=== PATIENT | female | born 1960 | race Caucasian/White ===

== ENCOUNTER 2022-12-15 17:53 | Inpatient (IN) | payer BC ==
[~2022-12-15] VITALS: Ht 170.2 cm; Wt 72.6 kg
[2022-12-15] MEDS ORDERED: ONDANSETRON HCL 4MG/2ML INJ IV STA ×2 (18:07→19:49)
[2022-12-15] MEDS ORDERED: MORPHINE SULFATE 4 MG/ML CPJ (NOT FOR IM USE) IV STA ×2 (18:07→19:49)
[2022-12-15 18:26] LABS: BASOPHILS % 0.6 % (0.0-2.0); HEMATOCRIT. 36.7 % (36.0-48.0); LYMPHOCYTES % 30.1 % (20.0-50.0); MEAN CORPUSCULAR HEMOGLOBIN 27.8 pg (28.0-32.0); MEAN CORPUSCULAR HGB CONC 32.7 g/dL (31.0-37.0); MEAN CORPUSCULAR VOLUME 85.1 fL (81.0-99.0); MONOCYTES % 5.8 % (2.0-8.0); NEUTROPHILS % 61.5 % (40.0-76.0); PLATELET 316 x1000/uL (130-400); RED BLOOD CELL COUNT 4.32 mill/uL (4.2-5.4); RED CELL DISTRIBUTION WIDTH 13.8 % (11.6-14.6)
[2022-12-15 18:56] LABS: CHLORIDE 106 mEq/L (98-107); INDEX HEMOLYSI 1 (1-3); INDEX ICTERIC 1 (1-4); INDEX LIPEMIC 1 (1-3); POTASSIUM 3.6 mEq/L (3.5-5.1); SODIUM 139 mEq/L (136-145)
[2022-12-15 19:05] LABS: ALANINE AMINOTRANSFERASE 39 IU/L (13-61); ALBUMIN 3.8 g/dL (3.4-5.0); ASPARTATE AMINOTRANSFERASE 28 IU/L (15-37); BILIRUBIN TOTAL 0.2 mg/dL (0.1-1.0); CALCIUM 9.1 mg/dL (8.5-10.1); CARBON DIOXIDE 26 mEq/L (21-32); GLUCOSE 116 mg/dL (70-105); PROTEIN TOTAL 6.9 g/dL (6.0-8.3); UREA NITROGEN BLOOD 17 mg/dL (7-21)
[2022-12-15] MEDS ORDERED: SODIUM CHLORIDE 0.9% 1,000 ML IV ONE (20:00)
[2022-12-15 23:30] VITALS: BP 127/65; PULSE 74; RESP 18; TEMP 97.6
[2022-12-16] VITALS: BP 140/77; PULSE 77; RESP 16; TEMP 98.9
[2022-12-16] MEDS ORDERED: ONDANSETRON HCL 4MG/2ML INJ IV PRN (00:45)
[2022-12-16] MEDS ORDERED: MAGNESIUM HYDROXIDE 400MG/5ML 30ML UDC PO PRN (00:45)
[2022-12-16] MEDS ORDERED: ACETAMINOPHEN 325MG TABLET PO PRN ×2 (00:45)
[2022-12-16] MEDS ORDERED: MAGNESIUM/ALUMINUM HYDROXIDE/SIMETHICONE 30ML UDC PO PRN (00:45)
[2022-12-16] MEDS ORDERED: DIPHENHYDRAMINE 50MG/ML VIAL IV PRN (00:45)
[2022-12-16] MEDS ORDERED: CLONIDINE 0.1MG TABLET PO PRN (00:45)
[2022-12-16] MEDS ORDERED: ZOLPIDEM TARTRATE 5MG TABLET PO PRN (01:45)
[2022-12-16] MEDS: ZOLPIDEM TARTRATE 5MG TABLET PO PRN (02:52)
[2022-12-16] MEDS: HYDROCODONE/ACETAMINOPHEN 10/325MG TABLET PO PRN ×4 (02:52→20:20)
[2022-12-16 04:00] VITALS: BP 133/71; PULSE 79; RESP 18; TEMP 97.4
[2022-12-16] MEDS: SODIUM CHLORIDE 0.9% INJ 3ML FLUSH IVF SCH ×3 (06:20→22:00)
[2022-12-16] MEDS: OMEPRAZOLE 20MG CAPSULE EXTENDED RELEASE PO SCH (07:20)
[2022-12-16 07:42] LABS: INR 0.9
[2022-12-16 08:00] VITALS: BP 123/74; PULSE 74; RESP 20; TEMP 98.2
[2022-12-16] MEDS: POLYETHYLENE GLYCOL 3350 (17GM) 1 DOSE PACK PO SCH (09:00)
[2022-12-16] MEDS: ENOXAPARIN 40MG/0.4ML SYR SUBCUT SCH (09:00)
[2022-12-16] MEDS: DOCUSATE SODIUM 250MG CAPSULE PO SCH (09:00)
[2022-12-16 12:00] VITALS: BP 97/62; PULSE 78; RESP 20; TEMP 98.2
[2022-12-16] MEDS ORDERED: NALOXONE HCL 0.4MG/ML VIAL IV PRN (19:45)
[2022-12-16 20:00] VITALS: BP 133/87; PULSE 87; RESP 20; TEMP 98.6
[2022-12-17] VITALS: BP 97/88; PULSE 87; RESP 18; TEMP 97.9
[2022-12-17] MEDS: MORPHINE SULFATE 4 MG/ML CPJ (NOT FOR IM USE) IV PRN ×5 (01:05→21:45)
[2022-12-17 04:00] VITALS: BP 124/68; PULSE 85; RESP 20; TEMP 98.1
[2022-12-17] MEDS: SODIUM CHLORIDE 0.9% INJ 3ML FLUSH IVF SCH (06:00)
[2022-12-17 08:00] VITALS: BP 122/66; PULSE 77; RESP 20; TEMP 99.1
[2022-12-17] MEDS: POLYETHYLENE GLYCOL 3350 (17GM) 1 DOSE PACK PO SCH (09:00)
[2022-12-17] MEDS: DOCUSATE SODIUM 250MG CAPSULE PO SCH (09:00)
[2022-12-17] MEDS ORDERED: LIDOCAINE HCL 1%/EPI 1:200,000 30 ML VIAL ONE (11:48)
[2022-12-17] MEDS ORDERED: POLYMYXIN B SULFATE 500000 UNITS/VIAL ONE (11:48)
[2022-12-17] MEDS ORDERED: VANCOMYCIN HCL 1 GM/VIAL ONE (11:48)
[2022-12-17 12:00] VITALS: BP 121/70; PULSE 77; RESP 19; TEMP 96.8
[2022-12-17] MEDS ORDERED: SUCCINYLCHOLINE CHLORIDE 200MG/10ML IV ONE (12:51)
[2022-12-17] MEDS ORDERED: ROCURONIUM BROMIDE 10MG/ML VIAL 5ML IV ONE (12:51)
[2022-12-17] MEDS ORDERED: FENTANYL CITRATE/PF 50MCG/ML 2ML VIAL ONE (12:52)
[2022-12-17] MEDS ORDERED: PROPOFOL 200MG/20ML VIAL IV ONE (12:52)
[2022-12-17] MEDS ORDERED: MIDAZOLAM HCL 2 MG/2 ML VIAL ONE (12:52)
[2022-12-17] MEDS ORDERED: PHENYLEPHRINE HCL 10 MG/ML 1ML (IV VIAL) IV ONE (13:15)
[2022-12-17] MEDS ORDERED: GLYCOPYRROLATE 0.2 MG/ML 2ML VIAL ONE (13:32)
[2022-12-17] MEDS ORDERED: NEOSTIGMINE METHYLSULFATE 1MG/ML 10 ML VIAL ONE (13:32)
[2022-12-17] MEDS ORDERED: HYDROMORPHONE HCL/PF 2MG/ML CPJ IV PRN (14:00)
[2022-12-17] MEDS: CEFAZOLIN 2,000 MG in DEXT 5% WATER 100 ML IV SCH ×2 (14:00→22:00)
[2022-12-17] MEDS ORDERED: METHOCARBAMOL 750MG TABLET PO PRN (16:45)
[2022-12-17 20:00] VITALS: BP 118/68; PULSE 85; RESP 18; TEMP 98.2
[2022-12-17] MEDS: ZOLPIDEM TARTRATE 5MG TABLET PO PRN (21:44)
[2022-12-18] VITALS: BP_SYST 115; BP_SYST 90; BP_DIAS 54; BP_DIAS 69; PULSE 86; PULSE 95; RESP 20; TEMP 97.7; TEMP 98.8
[2022-12-18] MEDS: MORPHINE SULFATE 4 MG/ML CPJ (NOT FOR IM USE) IV PRN ×4 (01:37→17:06)
[2022-12-18 04:00] VITALS: BP 103/67; PULSE 77; RESP 18; TEMP 99.7
[2022-12-18] MEDS: HYDROCODONE/ACETAMINOPHEN 10/325MG TABLET PO PRN ×2 (04:08→20:24)
[2022-12-18] MEDS: CEFAZOLIN 2,000 MG in DEXT 5% WATER 100 ML IV SCH ×3 (05:32→21:17)
[2022-12-18 08:00] VITALS: BP 104/59; PULSE 80; RESP 20; TEMP 97.7
[2022-12-18] MEDS: OMEPRAZOLE 20MG CAPSULE EXTENDED RELEASE PO SCH (08:30)
[2022-12-18] MEDS: DOCUSATE SODIUM 250MG CAPSULE PO SCH ×2 (08:30→15:06)
[2022-12-18] MEDS: POLYETHYLENE GLYCOL 3350 (17GM) 1 DOSE PACK PO SCH (08:34)
[2022-12-18] MEDS: ENOXAPARIN 40MG/0.4ML SYR SUBCUT SCH (08:46)
[2022-12-18 12:00] VITALS: BP 116/68; PULSE 95; RESP 20; TEMP 96.4
[2022-12-18] MEDS: SODIUM CHLORIDE 0.9% INJ 3ML FLUSH IVF SCH ×2 (14:00→22:00)
[2022-12-18] MEDS: CARISOPRODOL 350 MG TABLET PO PRN ×2 (14:42→20:24)
[2022-12-18 16:00] VITALS: BP 116/68; PULSE 95; RESP 20; TEMP 96.4
[2022-12-18 19:56] VITALS: BP 106/57; PULSE 100; RESP 18; TEMP 98.8
[2022-12-19] VITALS: BP 105/57; PULSE 109; RESP 20; TEMP 98.9
[2022-12-19] MEDS: MORPHINE SULFATE 4 MG/ML CPJ (NOT FOR IM USE) IV PRN ×2 (03:59→16:37)
[2022-12-19 04:00] VITALS: BP 113/70; PULSE 100; RESP 18; TEMP 97.9
[2022-12-19] MEDS: CEFAZOLIN 2,000 MG in DEXT 5% WATER 100 ML IV SCH ×3 (05:42→21:32)
[2022-12-19] MEDS: SODIUM CHLORIDE 0.9% INJ 3ML FLUSH IVF SCH ×3 (05:43→22:00)
[2022-12-19] MEDS: CARISOPRODOL 350 MG TABLET PO PRN ×2 (05:48→21:31)
[2022-12-19] MEDS: OMEPRAZOLE 20MG CAPSULE EXTENDED RELEASE PO SCH ×2 (07:20→07:51)
[2022-12-19 08:00] VITALS: BP 116/78; PULSE 95; RESP 20; TEMP 98
[2022-12-19] MEDS: ENOXAPARIN 40MG/0.4ML SYR SUBCUT SCH (09:25)
[2022-12-19] MEDS: DOCUSATE SODIUM 250MG CAPSULE PO SCH ×2 (09:25→17:05)
[2022-12-19] MEDS: POLYETHYLENE GLYCOL 3350 (17GM) 1 DOSE PACK PO SCH (09:26)
[2022-12-19] MEDS ORDERED: BISACODYL 10MG SUPP PR PRN (11:45)
[2022-12-19 12:00] VITALS: BP 113/71; PULSE 91; RESP 18; TEMP 98.7
[2022-12-19] MEDS: HYDROCODONE/ACETAMINOPHEN 10/325MG TABLET PO PRN ×2 (13:04→20:21)
[2022-12-19 16:00] VITALS: BP 111/71; PULSE 94; RESP 19; TEMP 97.7
[2022-12-19 20:00] VITALS: BP 102/63; PULSE 96; RESP 18; TEMP 98.2
[2022-12-20 04:00] VITALS: BP 112/67; PULSE 92; RESP 18; TEMP 99.1
[2022-12-20] MEDS: SODIUM CHLORIDE 0.9% INJ 3ML FLUSH IVF SCH ×3 (05:26→21:36)
[2022-12-20 06:24] LABS: BASOPHILS % 0.3 % (0.0-2.0); EOSINOPHILS % 3.2 % (0.0-5.0); HEMATOCRIT. 26.5 % (36.0-48.0); HEMOGLOBIN. 9.1 g/dL (12.0-16.0); LYMPHOCYTES % 14.6 % (20.0-50.0); MEAN CORPUSCULAR HEMOGLOBIN 29.2 pg (28.0-32.0); MEAN CORPUSCULAR HGB CONC 34.3 g/dL (31.0-37.0); MEAN PLATELET VOLUME 8.2 fl (7.4-10.4); MONOCYTES % 9.5 % (2.0-8.0); NEUTROPHILS % 72.4 % (40.0-76.0); PLATELET 240 x1000/uL (130-400); RED BLOOD CELL COUNT 3.12 mill/uL (4.2-5.4); RED CELL DISTRIBUTION WIDTH 13.5 % (11.6-14.6); WHITE BLOOD COUNT 10.4 x1000/uL (4.5-11.0)
[2022-12-20 06:37] LABS: CALCIUM 8.4 mg/dL (8.5-10.1); CHLORIDE 104 mEq/L (98-107); INDEX HEMOLYSI 1 (1-3); INDEX ICTERIC 1 (1-4); INDEX LIPEMIC 1 (1-3); SODIUM 138 mEq/L (136-145)
[2022-12-20 06:42] LABS: CARBON DIOXIDE 29 mEq/L (21-32); CREATININE 0.6 mg/dL (0.6-1.3); GLUCOSE 130 mg/dL (70-105); PHOSPHORUS 3.1 mg/dL (2.5-4.9); UREA NITROGEN BLOOD 13 mg/dL (7-21)
[2022-12-20] MEDS: CARISOPRODOL 350 MG TABLET PO PRN ×2 (06:46→21:36)
[2022-12-20 07:56] VITALS: BP 107/70; PULSE 90; RESP 18; TEMP 98.2
[2022-12-20] MEDS: MORPHINE SULFATE 4 MG/ML CPJ (NOT FOR IM USE) IV PRN ×3 (08:39→21:36)
[2022-12-20] MEDS: ENOXAPARIN 40MG/0.4ML SYR SUBCUT SCH (08:45)
[2022-12-20] MEDS: FAMOTIDINE 20MG TABLET PO SCH ×2 (08:45→21:36)
[2022-12-20] MEDS: DOCUSATE SODIUM 250MG CAPSULE PO SCH ×2 (08:48→17:00)
[2022-12-20] MEDS: POLYETHYLENE GLYCOL 3350 (17GM) 1 DOSE PACK PO SCH (08:48)
[2022-12-20 12:00] VITALS: BP 102/62; PULSE 94; RESP 18; TEMP 99.1
[2022-12-20] MEDS ORDERED: BISACODYL 10MG SUPP PR NR (13:45)
[2022-12-20 16:00] VITALS: BP 110/72; PULSE 94; RESP 18; TEMP 99.7
[2022-12-20 20:00] VITALS: BP 105/58; PULSE 89; RESP 20; TEMP 98.4
[2022-12-21] VITALS: BP 110/60; PULSE 80; RESP 20; TEMP 98.2
[2022-12-21] MEDS ORDERED: HYDROCODONE/ACETAMINOPHEN 10/325MG TABLET PO NR (02:45)
[2022-12-21 04:00] VITALS: BP 106/63; PULSE 74; RESP 20; TEMP 97.5
[2022-12-21] MEDS: SODIUM CHLORIDE 0.9% INJ 3ML FLUSH IVF SCH ×2 (06:00→21:26)
[2022-12-21 08:00] VITALS: BP 124/52; PULSE 72; RESP 18; TEMP 97.4
[2022-12-21] MEDS: ENOXAPARIN 40MG/0.4ML SYR SUBCUT SCH (09:29)
[2022-12-21] MEDS: FAMOTIDINE 20MG TABLET PO SCH ×2 (09:29→21:25)
[2022-12-21] MEDS: DOCUSATE SODIUM 250MG CAPSULE PO SCH ×2 (09:29→16:11)
[2022-12-21] MEDS: POLYETHYLENE GLYCOL 3350 (17GM) 1 DOSE PACK PO SCH (09:29)
[2022-12-21 12:00] VITALS: BP 117/67; PULSE 85; RESP 18; TEMP 98.1
[2022-12-21] MEDS: HYDROCODONE/ACETAMINOPHEN 10/325MG TABLET PO PRN ×2 (14:25→21:25)
[2022-12-21 16:00] VITALS: BP 111/58; PULSE 90; RESP 18; TEMP 98.9
[2022-12-21 20:00] VITALS: BP 107/68; PULSE 91; RESP 20; TEMP 96.5
[2022-12-22 04:00] VITALS: BP 124/62; PULSE 85; RESP 18; TEMP 97.7
[2022-12-22] MEDS: SODIUM CHLORIDE 0.9% INJ 3ML FLUSH IVF SCH ×2 (05:38→21:53)
[2022-12-22] MEDS: HYDROCODONE/ACETAMINOPHEN 10/325MG TABLET PO PRN ×3 (06:17→18:45)
[2022-12-22 08:00] VITALS: BP 103/64; PULSE 82; RESP 18; TEMP 97.9
[2022-12-22] MEDS: DOCUSATE SODIUM 250MG CAPSULE PO SCH ×2 (09:05→16:51)
[2022-12-22] MEDS: FAMOTIDINE 20MG TABLET PO SCH ×2 (09:05→21:53)
[2022-12-22] MEDS: ENOXAPARIN 40MG/0.4ML SYR SUBCUT SCH (09:05)
[2022-12-22] MEDS: POLYETHYLENE GLYCOL 3350 (17GM) 1 DOSE PACK PO SCH (09:05)
[2022-12-22 12:00] VITALS: BP 161/77; PULSE 74; RESP 18; TEMP 98.4
[2022-12-22 16:00] VITALS: BP_SYST 115; BP_SYST 128; BP_DIAS 72; BP_DIAS 78; PULSE 86; PULSE 88; RESP 16; RESP 18; TEMP 98.1; TEMP 98.9
[2022-12-22] MEDS: CARISOPRODOL 350 MG TABLET PO PRN (16:51)
[2022-12-22 20:00] VITALS: BP 106/64; PULSE 86; RESP 20; TEMP 98.3
[2022-12-22] MEDS ORDERED: NALOXONE HCL 0.4MG/ML VIAL IV PRN (21:00)
[2022-12-23] VITALS: BP 136/67; PULSE 77; RESP 20; TEMP 98
[2022-12-23] MEDS: HYDROCODONE/ACETAMINOPHEN 10/325MG TABLET PO PRN ×2 (00:16→14:51)
[2022-12-23 04:00] VITALS: BP 109/77; PULSE 66; RESP 20; TEMP 97.4
[2022-12-23] MEDS: SODIUM CHLORIDE 0.9% INJ 3ML FLUSH IVF SCH (05:36)
[2022-12-23] MEDS: FAMOTIDINE 20MG TABLET PO SCH (08:31)
[2022-12-23] MEDS: POLYETHYLENE GLYCOL 3350 (17GM) 1 DOSE PACK PO SCH (08:31)
[2022-12-23] MEDS: ENOXAPARIN 40MG/0.4ML SYR SUBCUT SCH (08:31)
[2022-12-23 12:00] VITALS: BP 113/72; PULSE 78; RESP 16; TEMP 98.7
[2022-12-23 13:04] VITALS: BP 113/66; PULSE 78; TEMP 98.7; O2SAT 98
[2022-12-23 14:51] VITALS: BP 107/71; PULSE 84
== END 2022-12-23 15:55 | disposition home or self-care (01) | DRG 482 ==
LOC: ER 20:00 → 6EST 20:28
PROVIDERS: ADMIT Internal Medicine; ATTEND Internal Medicine
PROC: 0QS706Z Reposition Left Upper Femur with Intramedullary Internal Fixation Device, Open Approach (ICD-10-PCS; principal; 2022-12-20)
DX: S72.142A Displaced intertrochanteric fracture of left femur, initial encounter for closed fracture (principal); E78.00 Pure hypercholesterolemia, unspecified; M81.0 Age-related osteoporosis without current pathological fracture; Z20.822 Contact with and (suspected) exposure to COVID-19; Z87.891 Personal history of nicotine dependence; W18.30XA Fall on same level, unspecified, initial encounter; Y93.89 Activity, other specified; Y92.89 Other specified places as the place of occurrence of the external cause; Y99.8 Other external cause status
CPT/HCPCS: 36415; 71045; 72192; 73502; 76000; 80048; 80053; 83735; 84100; 85025; 87426; 93005; 97116; 97162; 97166; 97530; 97535; 99285; J0330; J0690; J1170; J1650; J2250; J2270; J2370; J2405; J2704; J2710; J3010; J3370; J3490; J7030; J7060; A4315